=== PATIENT | female | born 1990 | race American Indian/Alaskan Native ===

== ENCOUNTER 2020-02-27 15:53 | Outpatient (CLI) | payer OTHER ==
[2020-02-27 17:11] LABS: Bilirubin,Urine NEG (Negative); Blood,Urine NEG (Negative); Color,Urine Straw (Yellow); Protein,Urine <15 mg/dL mg/dL (Negative); Urobilinogen,Urine < 2.0 mg/dL (<2.0)
--- NOTE | 2020-02-27 19:04 | Ultrasound Report ---
US OB limited INDICATION / CLINICAL INFORMATION: BETH. COMPARISON: None available. FINDINGS: Amniotic fluid index is 10.6 cm, within normal limits. IMPRESSION: 1. Amniotic fluid index is within normal limits. Signer Name: Kan Beckham MD Signed: 02/27/2020 6:59 PM Workstation Name: [id number]
--- NOTE | 2020-02-29 07:22 | Ultrasound Report ---
Limited BPP Ultrasound HISTORY: WELLBEING. TECHNIQUE: Grayscale and color imaging performed. COMPARISON: Limited ultrasound from the same date FINDINGS: The fetus received a score of 2 out of 2 for breathing, movement, posture/tone, and BETH. To reyna score was 8 out of 8. Heart rate was 130 bpm. IMPRESSION: Normal biophysical profile. Signer Name: Paresh Mcmahon MD Signed: 02/29/2020 7:18 AM Workstation Name: [email or web address]
[2020-02-29 12:44] VITALS: BP 130/84
== END 2020-02-27 18:01 | disposition home or self-care (01) ==
LOC: TRG 15:53 → APU 16:01 → TRG 18:01
PROVIDERS: ATTEND Obstetrics & Gynecology
DX: O36.8130 Decreased fetal movements, third trimester, not applicable or unspecified (principal); Z3A.38 38 weeks gestation of pregnancy
CPT/HCPCS: 59025; 76815; 76819; 81001

== ENCOUNTER 2020-03-03 01:28 | Outpatient (CLI) | payer MEDICAID, OTHER ==
[2020-03-03 03:25] LABS: Bacteria,Urine 1+ /HPF (Negative); Bilirubin,Urine NEG (Negative); Blood,Urine NEG (Negative); Color,Urine Straw (Yellow); Protein,Urine <15 mg/dL mg/dL (Negative); Urobilinogen,Urine < 2.0 mg/dL (<2.0)
== END 2020-03-03 04:15 | disposition home or self-care (01) ==
LOC: EDBD → TRG 01:28 → APU 01:29 → TRG 04:15
PROVIDERS: ATTEND Obstetrics & Gynecology
DX: O47.1 False labor at or after 37 completed weeks of gestation (principal); Z3A.39 39 weeks gestation of pregnancy
CPT/HCPCS: 59025; 81001

== ENCOUNTER 2020-03-05 20:29 | Inpatient (IN) | payer MEDICAID, OTHER ==
[2020-03-05] MEDS: LACTATED RINGERS 1,000 ML IV SCH (22:33)
[2020-03-05] MEDS: BUTORPHANOL 2 MG/1 ML INJ IV PRN (22:33)
[2020-03-05] MEDS ORDERED: LIDOCAINE (2%) 20 MG/1 ML VIAL 20 ML MDV INFILTRATI ONE (23:17)
[2020-03-05] MEDS ORDERED: TERBUTALINE 1 MG/1 ML INJ SUB-Q PRN (23:17)
[2020-03-05] MEDS ORDERED: TERBUTALINE 1 MG/1 ML INJ IVP PRN (23:17)
[2020-03-05] MEDS ORDERED: ePHEDrine SULFATE 50 MG/1 ML INJ IV PRN (23:17)
[2020-03-05] MEDS ORDERED: MINERAL OIL 30 ML ORAL LIQD PO PRN (23:17)
[2020-03-05 23:41] LABS: Basophils % (Auto) 0.4 % (0.0-1.8); Eosinophils % (Auto) 0.2 % (0.0-4.3); Hematocrit 33.4 % (30.3-42.9); Hemoglobin 11.2 gm/dl (10.1-14.3); Lymphocytes # (Auto) 1.8 K/mm3 (1.2-5.4); Lymphocytes % (Auto) 27.3 % (13.4-35.0); Mean Corpuscular HGB Conc 34 % (30-34); Mean Corpuscular Volume 94 fl (79-97); Monocytes # (Auto) 0.8 K/mm3 (0.0-0.8); Monocytes % (Auto) 12.1 % (0.0-7.3); Platelet Count 167 K/mm3 (140-440); Red Blood Count 3.55 M/mm3 (3.65-5.03)
[2020-03-05] MEDS ORDERED: LACTATED RINGERS 1,000 ML IV SCH (23:45)
[2020-03-05] MEDS ORDERED: OXYTOCIN 20 UNIT/1000ML DRIP 20 UNITS/1,000 ML BAG IV SCH (23:45)
[2020-03-06] MEDS: BUTORPHANOL 2 MG/1 ML INJ IV PRN (03:36)
[2020-03-06] MEDS: LACTATED RINGERS 1,000 ML IV SCH ×5 (04:41→13:46)
[2020-03-06] MEDS ORDERED: OXYTOCIN 10 UNIT/1 ML INJ ONE (06:25)
[2020-03-06] MEDS: OXYTOCIN DRIP 30 UNITS/500 ML BAG IV SCH ×2 (08:28→16:18)
--- NOTE | 2020-03-06 08:51 | History and Physical Report ---
History of Present Illness Date of examination: 03/06/20 Date of admission: 03/05/20 21:44 Chief complaint: scheduled induction of labor History of present illness: Pt is a 21 year old primigravida SAMMY 03/10/20 at 39w3d who presents for scheduled induction of labor secondary to IUGR by abdominal circumference 6%ile. She denies vaginal bleeding or leakage of fluid and reports irregular contractions. She has had care at [facility] since 29 wks complicated by h/o seizures on Keppra 500 mg BID. She is GBS negative. Past History Past Medical History: seizure (Keppra 500 mg BID ) Past Surgical History: [employer]/uterine surgery (Bartholin cyst drainage ), other (ear surgery ) Family/Genetic History: hypertension Social history: no significant social history - Obstetrical History Expected Date of Delivery: 03/10/20 Actual Gestation: 39 Week(s) 3 Day(s) : 1 Medications and Allergies Allergies Allergy/AdvReac Type Severity Reaction Status Date / Time No Known Allergies Allergy Verified 03/05/20 20:43 Home Medications Medication Instructions Recorded Confirmed Last Taken Type levETIRAcetam [Keppra TAB] 500 mg PO BID 03/05/20 03/05/20 03/05/20 History 500 mg Active Meds: Active Medications Butorphanol Tartrate (Stadol) 2 mg IV Q2H PRN PRN Reason: Labor Pain Last Admin: 03/06/20 03:36 Dose: 2 mg Documented by: Ephedrine Sulfate (Ephedrine Sulfate) 10 mg IV Q2M PRN PRN Reason: Hypotension Lactated Ringer's (Lactated Ringers) 1,000 mls @ 125 mls/hr IV DIRECT DIANA Last Admin: 03/06/20 08:27 Dose: 999 mls/hr Documented by: Oxytocin/Sodium Chloride (Pitocin/Ns 20 Unit/1000ml Drip) 20 units in 1,000 mls @ 125 mls/hr IV DIRECT DIANA Oxytocin/Sodium Chloride (Pitocin/Ns 30 Unit/500ml) 30 units in 500 mls @ 0 mls/hr IV TITR DIANA; Protocol Last Admin: 03/06/20 08:28 Dose: 2 ml/hr, 2 mls/hr Documented by: Levetiracetam (Keppra) 500 mg PO BID DIANA Mineral Oil (Mineral Oil) 30 ml PO QHS PRN PRN Reason: Constipation Terbutaline Sulfate (Brethine) 0.25 mg SUB-Q ONCE PRN PRN Reason: Hyperstimulation/Hypertonicity Terbutaline Sulfate (Brethine) 0.25 mg IVP ONCE PRN PRN Reason: Hyperstimulation/Hypertonicity Review of Systems All systems: negative - Vital Signs Vital signs: Vital Signs Temp Resp BP 98.6 F 18 135/89 03/05/20 20:45 03/05/20 20:45 03/05/20 20:45 Temp Pulse Resp BP Pulse Ox 98.0 F 85 20 135/81 98 03/06/20 07:56 03/06/20 08:48 03/06/20 07:56 03/06/20 07:56 03/06/20 08:48 - Physical Exam Breasts: Positive: deferred Abdomen: Positive: soft (gravid ) Uterus: Positive: enlarged (gravid ) Extremities: Positive: normal - Obstetrical FHR: auscultation normal Uterine Contraction Monitor Mode: External Cervical Dilatation: 3.5 Cervical Effacement Percentage: 100 station: -1 Uterine Contraction Pattern: Regular Uterine Tone Measurement Phase: Resting Uterine Contraction Intensity: Moderate Results Result Diagrams: 03/05/20 22:37 Abnormal lab results 03/05/20 Range/Units 22:37 RBC 3.55 L (3.65-5.03) M/mm3 [place] % (Auto) 12.1 H (0.0-7.3) % All other labs normal. Assessment and Plan A: IUP at 39w3d IUGR by abdominal circumference 6%ile Seizure Disorder GBS Negative P: Admit to Labor and Delivery Routine intrapartum care Closely monitor maternal and status
[2020-03-06] MEDS ORDERED: DEXMEDETOMIDINE 200 MCG/2 ML VIAL IV ONE (09:28)
[2020-03-06] MEDS ORDERED: ePHEDrine SULFATE 50 MG/1 ML INJ IV PRN (10:03)
[2020-03-06] MEDS ORDERED: NALOXONE 2 MG/2 ML INJ IV PRN (10:03)
--- NOTE | 2020-03-06 10:05 | Anesthesia Consultation ---
Anesthesia Consult and Med Hx Date of service: 03/06/20 - Airway Anesthetic Teeth Evaluation: Good ROM Head & Neck: Adequate Mental/Hyoid Distance: Adequate Mallampati Class: Class II Intubation Access Assessment: Probably Good - Pulmonary Exam CTA: Yes - Cardiac Exam Cardiac Exam: RRR - Pre-Operative Health Status ASA Pre-Surgery Classification: ASA2 Proposed Anesthetic Plan: Epidural - Pulmonary Hx Smoking: No Hx Asthma: No Hx Respiratory Symptoms: No SOB: No COPD: No Home Oxygen Therapy: No Hx Pneumonia: No Hx Sleep Apnea: No - Cardiovascular System Hx Hypertension: No Hx Coronary Artery Disease: No Hx Heart Attack/AMI: No Hx Angina: No Hx Percutaneous Transluminal Coronary Angioplasty (PTCA): No Hx Cardia Arrhythmia: No Hx Pacemaker: No Hx Internal Defibrillator: No Hx Valvular Heart Disease: No Hx Heart Murmur: No Hx Peripheral Vascular Disease: No - Central Nervous System Hx Neuromuscular Disorder: No Hx Seizures: Yes CVA: No Hx Back Pain: No Hx Psychiatric Problems: No - Gastrointestinal Hx Ulcer: No Hx Gastroesophageal Reflux Disease: No - Endocrine Hx Renal Disease: No Hx End Stage Renal Disease: No Hx Cirrhosis: No Hx Liver Disease: No Hx Insulin Dependent Diabetes: No Hx Non-Insulin Dependent Diabetes: No Hx Thyroid Disease: No Hx Hypothyroidism: No Hx Hyperthyroidism: No - Hematic Hx Anemia: No Hx Sickle Cell Disease: No - Other Systems Hx Alcohol Use: No Hx Substance Use: No Hx Cancer: No Hx Obesity: No
[2020-03-06] MEDS: levETIRAcetam 500 MG TAB PO SCH ×2 (10:20→21:54)
[2020-03-06] MEDS ORDERED: fentaNYL-BUPIV 2 MCG/ML-0.125% 200 MCG/100 ML BAG EPIDURAL SCH (11:00)
--- NOTE | 2020-03-06 11:02 | Progress Note ---
Labor Epidural - Labor Epidural Start Time: 09:30 Stop Time: :44 Performed by:: ALANNAH BULLARD Procedure: Patient is requesting combined spinal epidural for labor and pain. H&P, labs were reviewed. All questions and concerns were answered. Informed consent was obtained. Timeout performed. Patient in sitting position on side of bed. Sterile prep and drape was performed. [3] mL 1% lidocaine skin wheal at L [4]-L [5]. 18-gauge Touhy epidural needle advanced to [id number] using air technique, [6 cm]. 27-gauge spinal needle advanced [clear positive free- flowing] CSF. spinal dose of [Precedex 10 mcg]. Epidural catheter advanced to [10] cm. [Negative] Aspiration, [negative] test dose. Sterile dressing applied. Patient tolerated procedure well.
--- NOTE | 2020-03-06 13:35 | Event Note ---
Date: 03/06/20 Pt comfortable with epidural. SVE: /-1/ AROM- clear. IUPC placed. Closely monitor maternal and status.
[2020-03-06] MEDS ORDERED: SODIUM CHLORIDE 0.9% 1000 ML 1,000 ML ONE (13:39)
[2020-03-06] MEDS ORDERED: SODIUM CHLORIDE 0.9% 1000 ML 1,000 ML VG SCH (14:15)
--- NOTE | 2020-03-06 19:42 | Procedure Note ---
OB Delivery Note - Delivery Date of Delivery: 03/06/20 Surgeon: RICKY EDWARDS Estimated blood loss: 500cc - Vaginal Delivery presentation: compound Delivery position: OA Intrapartum events: PROM->1hr before delivery, mult. late decelerations, mult.variable deceleratio, uterine atony Delivery induction: oxytocin Delivery augmentation: rupture of membranes, pitocin Delivery monitor: external FHT, internal uterine Route of delivery: Delivery placenta: spontaneous Delivery cord: nuchal cord (x1, tight ) Episiotomy: none Delivery laceration: vaginal side wall (left,), other (Bilateral periurethral- hemostatic ) Delivery repair: vicryl Anesthesia: epidural Delivery comments: Pt progressed to complete/complete/+3 and pushed to deliver a viable male over intact perineum via spontaneous vaginal delivery under epidural anesthesia. Head delivered in compound presentation, DEJUAN. Tight nuchal x 1 doubly clamped and cut. Shoulders and body delivered with ease. immediately handed to NICU staff in attendance. Cord blood collected. Placenta delivered spontaneously (3 vessel cord, intact). Uterine atony noted. Methergine 0.2 mg IM administered. Uterine tone improved. Vagina and perineum explored. Bilateral periurethral lacerations noted to be hemostatic. Left vaginal lacerations repaired with 3-0 Vicryl in a running locked fashion. EBL 500 mL. - A at 1 minute: 4 at 5 minutes: 9 Infant Gender: Male (3150g (6lb 15 oz) @ 1912 pm)
[2020-03-06] MEDS ORDERED: METHYLERGONOVINE MALEATE 0.2 MG/ML VIAL IM ONE (19:44)
[2020-03-06] MEDS ORDERED: PROMETHAZINE 25 MG TAB PO PRN (20:56)
[2020-03-06] MEDS ORDERED: LANOLIN/ZINC/DIMETHICONE (LANSINOH) 7 GM TP PRN ×2 (20:56)
[2020-03-06] MEDS ORDERED: ONDANSETRON 4 MG/2 ML INJ IV PRN (20:56)
[2020-03-06] MEDS ORDERED: MAGNESIUM HYDROXIDE (MOM) ORAL LIQD UDC PO PRN (20:56)
[2020-03-06] MEDS ORDERED: hydrALAZINE 20 MG/1 ML INJ IV PRN (20:56)
[2020-03-06] MEDS ORDERED: WITCH HAZEL/ GLYCERIN PAD TP PRN (20:56)
[2020-03-06] MEDS ORDERED: PROMETHAZINE 25 MG RECT SUPP PR PRN (20:56)
[2020-03-06] MEDS ORDERED: BENZOCAINE/MENTHOL 20/0.5% TOP SPRAY 56 GM TP PRN (20:56)
[2020-03-06] MEDS ORDERED: CALCIUM GLUCONATE 1000 MG/10 ML INJ IV ONE (20:56)
[2020-03-06] MEDS ORDERED: diphenhydrAMINE 25 MG CAP PO PRN (20:56)
--- NOTE | 2020-03-06 20:56 | Event Note ---
Date: 03/06/20 On-call MD contacted by nurse secondary to new onset severe range blood pressures 170-180s/90s and headache. Collect PIH panel and begin magnesium sulfate for seizure prophylaxis.
[2020-03-06] MEDS ORDERED: LACTATED RINGERS 1,000 ML IV SCH (21:00)
[2020-03-06] MEDS ORDERED: OXYTOCIN 20 UNIT/1000ML DRIP 20 UNITS/1,000 ML BAG IV SCH (21:00)
[2020-03-06] MEDS ORDERED: MAGNESIUM SULFATE 4 GM/100 ML BAG IV ONE (21:06)
[2020-03-06] MEDS: ACETAMINOPHEN 325 MG TAB PO PRN (21:52)
[2020-03-06] MEDS: FERROUS SULFATE 325 MG TAB PO SCH (21:53)
[2020-03-06] MEDS: IBUPROFEN 600 MG TAB PO SCH (21:54)
[2020-03-06] MEDS ORDERED: MAGNESIUM SULFATE 40GM/1000ML 40 GM/1,000 ML BAG IV SCH (22:00)
[2020-03-06 22:19] LABS: Hematocrit 34.2 % (30.3-42.9); Hemoglobin 10.8 gm/dl (10.1-14.3); Mean Corpuscular HGB Conc 32 % (30-34); Mean Corpuscular Volume 99 fl (79-97); Platelet Count 180 K/mm3 (140-440); Red Blood Count 3.48 M/mm3 (3.65-5.03); Red Cell Distribution Width 15.3 % (13.2-15.2)
[2020-03-06 22:28] LABS: Alanine Aminotransferase 11 units/L (7-56); Uric Acid 6.8 mg/dL (3.5-7.6)
--- NOTE | 2020-03-07 00:20 | Post Anesthesia Evaluation ---
- Post Anesthesia Evaluation Patient Participated: Yes Airway Patent: Yes Stable Respiratory Function: Yes Nausea/Vomiting: No Temp > 96.8F: Yes Pain Manageable: Yes Adequeate Hydration: Yes Anesthesia Complications: No Block Receding Appropriately: Yes Patient on Ventilator: No
[2020-03-07] MEDS ORDERED: miSOPROStol 200 MCG TAB PR ONE (00:26)
[2020-03-07 02:21] LABS: Bilirubin,Urine NEG (Negative); Blood,Urine LG (Negative); Color,Urine Straw (Yellow); Mucus,Urine FEW /HPF; Protein,Urine <15 mg/dL mg/dL (Negative); Urobilinogen,Urine < 2.0 mg/dL (<2.0)
[2020-03-07] MEDS: IBUPROFEN 600 MG TAB PO SCH ×3 (03:55→17:39)
[2020-03-07] MEDS ORDERED: DIPHtheria,PERTUSSIS(ACELL),TETANUS VACCINE/PF 0.5 ML VIAL IM ONE (06:00)
[2020-03-07] MEDS: HYDROcodone/ACETAMINOPHEN 5-325 MG TAB PO PRN (07:08)
--- NOTE | 2020-03-07 08:20 | Progress Note ---
Assessment and Plan - Patient Problems (1) Severe preeclampsia Current Visit: Yes Status: Acute Plan to address problem: Continue to monitor symptoms Discontinue magnesium after completion of 24 hours Subjective - Subjective Date of service: 03/07/20 Interval history: The patient is currently receiving magnesium sulfate therapy for preeclampsia. She will complete her 24-hour course of medication this afternoon. She currently complains of some lower back discomfort and abdominal cramping. She has had no further episodes of emesis. Blood pressures are currently normotensive. Patient reports: flatus : doing well Objective - Vital Signs Latest vital signs: Vital Signs Temp Pulse Resp BP Pulse Ox 03/07/20 08:13 102 H 98 03/07/20 08:09 112 H 108/63 03/07/20 08:08 105 H 98 03/07/20 08:03 106 H 98 03/07/20 07:58 104 H 98 03/07/20 07:53 103 H 98 03/07/20 07:50 96 H 92 03/07/20 07:48 101 H 98 03/07/20 07:44 98 H 86 03/07/20 07:43 108 H 97 03/07/20 07:39 100 H 86 03/07/20 07:38 105 H 98 03/07/20 07:33 106 H 98 03/07/20 07:28 105 H 97 03/07/20 07:23 103 H 97 03/07/20 07:18 102 H 97 03/07/20 07:13 110 H 97 03/07/20 07:09 109 H 104/55 03/07/20 07:08 111 H 98 03/07/20 07:03 109 H 98 03/07/20 06:58 109 H 98 03/07/20 06:53 107 H 98 03/07/20 06:48 109 H 97 03/07/20 06:43 120 H 98 03/07/20 06:38 127 H 99 03/07/20 06:33 110 H 98 03/07/20 06:28 109 H 98 03/07/20 06:23 114 H 98 03/07/20 06:18 108 H 98 03/07/20 06:13 108 H 98 03/07/20 06:09 109 H 112/63 03/07/20 06:08 104 H 98 03/07/20 06:03 106 H 99 05/19/20 05:58 113 H 100 05/19/20 05:53 107 H 100 05/19/20 05:48 113 H 100 05/19/20 05:43 117 H 100 05/19/20 05:38 127 H 99 05/19/20 05:33 124 H 98 05/19/20 05:28 111 H 99 05/19/20 05:23 120 H 98 05/19/20 05:18 117 H 97 05/19/20 05:13 110 H 98 05/19/20 05:09 106 H 110/54 05/19/20 05:08 107 H 97 05/19/20 05:03 103 H 97 05/19/20 04:58 113 H 99 05/19/20 04:53 112 H 96 05/19/20 04:48 105 H 97 05/19/20 04:43 106 H 98 05/19/20 04:38 120 H 98 05/19/20 04:33 139 H 99 05/19/20 04:28 135 H 99 05/19/20 04:23 134 H 98 05/19/20 04:18 136 H 98 05/19/20 04:13 138 H 99 05/19/20 04:08 132 H 99 05/19/20 04:06 98.7 F 18 05/19/20 04:03 140 H 98 05/19/20 03:58 125 H 99 05/19/20 03:53 131 H 100 05/19/20 03:48 117 H 100 05/19/20 03:43 103 H 98 05/19/20 03:38 132 H 98 05/19/20 03:33 120 H 97 05/19/20 03:28 130 H 99 05/19/20 03:23 109 H 100 05/19/20 03:18 156 H 99 05/19/20 03:13 109 H 96 05/19/20 03:09 115 H 123/76 05/19/20 03:08 133 H 100 05/19/20 03:04 117 H 86 05/19/20 03:03 120 H 97 05/19/20 02:58 120 H 95 05/19/20 02:53 116 H 96 05/19/20 02:48 104 H 96 05/19/20 02:46 107 H 86 05/19/20 02:43 107 H 96 05/19/20 02:40 109 H 92 05/19/20 02:38 106 H 97 05/19/20 02:33 102 H 95 05/19/20 02:28 102 H 95 05/19/20 02:23 103 H 97 05/19/20 02:22 105 H 94 05/19/20 02:18 102 H 96 05/19/20 02:17 99 H 93 05/19/20 02:13 99 H 96 05/19/20 02:09 96 H 119/72 05/19/20 02:08 100 H 96 05/19/20 02:04 96 H 93 05/19/20 02:03 96 H 96 05/19/20 01:58 89 98 05/19/20 01:53 89 98 05/19/20 01:48 87 99 05/19/20 01:43 140 H 99 05/19/20 01:42 100 H 92 05/19/20 01:38 92 H 100 05/19/20 01:33 84 99 05/19/20 01:30 77 91 05/19/20 01:28 82 98 05/19/20 01:23 78 97 05/19/20 01:18 80 98 05/19/20 01:13 78 99 05/19/20 01:09 78 111/68 86 05/19/20 01:08 82 98 05/19/20 01:03 79 97 05/19/20 01:02 78 90 05/19/20 00:58 79 97 05/19/20 00:54 77 92 05/19/20 00:53 82 97 05/19/20 00:48 80 97 05/19/20 00:43 83 97 05/19/20 00:38 80 97 05/19/20 00:33 83 97 05/19/20 00:30 89 94 05/19/20 00:28 87 97 05/19/20 00:23 86 96 05/19/20 00:20 92 H 93 05/19/20 00:18 95 H 98 05/19/20 00:13 105 H 98 05/19/20 00:09 87 112/59 05/19/20 00:08 91 H 96 05/19/20 00:05 98.8 F 18 05/19/20 00:03 98 H 97 05/18/20 23:58 108 H 97 05/18/20 23:53 91 H 98 05/18/20 23:48 133 H 99 05/18/20 23:43 105 H 97 05/18/20 23:38 111 H 98 05/18/20 23:33 98 H 98 05/18/20 23:28 105 H 98 05/18/20 23:23 101 H 99 05/18/20 23:18 116 H 98 05/18/20 23:13 112 H 98 05/18/20 23:09 96 H 111/58 05/18/20 23:08 99 H 96 05/18/20 23:03 102 H 98 05/18/20 22:58 83 97 05/18/20 22:53 86 99 05/18/20 22:48 99 H 99 05/18/20 22:43 107 H 99 05/18/20 22:38 110 H 100 05/18/20 22:33 106 H 100 05/18/20 22:28 120 H 98 05/18/20 22:23 99 H 100 05/18/20 22:18 108 H 98 05/18/20 22:13 92 H 99 05/18/20 22:08 95 H 97 05/18/20 22:03 104 H 94 05/18/20 22:02 104 H 92 05/18/20 21:58 114 H 100 05/18/20 21:55 103 H 148/63 05/18/20 21:54 102 H 91 05/18/20 21:53 89 100 05/18/20 21:48 107 H 100 05/18/20 21:45 101.8 F H 05/18/20 21:43 107 H 97 05/18/20 21:38 90 97 05/18/20 21:34 90 125/69 05/18/20 21:33 92 H 99 05/18/20 21:28 80 99 05/18/20 21:23 77 98 05/18/20 21:18 113 H 99 05/18/20 21:14 63 139/87 05/18/20 21:13 67 99 05/18/20 21:08 65 100 05/18/20 21:03 68 100 05/18/20 20:58 68 100 05/18/20 20:54 61 167/61 05/18/20 20:53 64 98 05/18/20 20:48 63 99 05/18/20 20:45 63 186/79 05/18/20 20:43 72 95 05/18/20 20:38 62 99 05/18/20 20:35 64 173/76 05/18/20 20:33 66 99 05/18/20 20:28 66 100 05/18/20 20:23 63 99 05/18/20 20:18 61 98 05/18/20 20:15 64 159/82 05/18/20 20:13 63 98 05/18/20 20:08 63 98 05/18/20 20:03 68 100 05/18/20 20:02 83 94 05/18/20 19:58 84 96 05/18/20 19:54 68 146/61 05/18/20 19:53 74 100 05/18/20 19:48 100 H 99 05/18/20 19:43 91 H 98 05/18/20 19:38 87 99 05/18/20 19:36 76 134/68 05/18/20 19:33 97 H 100 05/18/20 19:28 81 100 05/18/20 19:23 87 100 05/18/20 19:21 85 126/73 05/18/20 19:20 100.2 F H 05/18/20 19:18 96 H 100 05/18/20 19:16 100.9 F H 05/18/20 19:13 83 100 05/18/20 19:08 107 H 100 05/18/20 19:06 78 138/79 05/18/20 19:03 110 H 100 05/18/20 19:00 100.9 F H 20 05/18/20 18:58 101 H 100 05/18/20 18:53 76 100 05/18/20 18:50 99.6 F 05/18/20 18:48 67 100 05/18/20 18:43 68 100 05/18/20 18:38 70 100 05/18/20 18:36 66 147/72 05/18/20 18:33 71 100 05/18/20 18:28 74 100 05/18/20 18:23 73 100 05/18/20 18:22 71 144/75 05/18/20 18:18 76 100 05/18/20 18:13 90 100 05/18/20 18:10 72 144/67 05/18/20 18:08 77 100 05/18/20 18:07 71 158/84 05/18/20 18:03 74 100 05/18/20 17:58 71 100 05/18/20 17:53 72 123/58 100 05/18/20 17:48 63 100 05/18/20 17:43 63 100 05/18/20 17:38 64 100 05/18/20 17:37 66 125/69 05/18/20 17:33 67 100 05/18/20 17:28 65 100 05/18/20 17:23 65 100 05/18/20 17:22 61 141/76 05/18/20 17:18 63 100 05/18/20 17:13 66 100 05/18/20 17:08 73 100 05/18/20 17:07 62 138/78 05/18/20 17:03 59 L 100 05/18/20 16:58 65 100 05/18/20 16:53 75 133/73 100 05/18/20 16:48 81 100 05/18/20 16:43 86 100 05/18/20 16:38 68 100 05/18/20 16:37 62 134/75 05/18/20 16:33 76 100 05/18/20 16:28 63 100 05/18/20 16:23 64 118/74 100 05/18/20 16:18 60 100 05/18/20 16:13 59 L 100 05/18/20 16:08 56 L 100 05/18/20 16:07 58 L 136/75 05/18/20 16:03 59 L 100 05/18/20 15:58 57 L 100 05/18/20 15:53 68 99 05/18/20 15:52 70 110/74 05/18/20 15:48 70 99 05/18/20 15:43 80 100 05/18/20 15:38 67 100 05/18/20 15:37 63 116/58 05/18/20 15:33 90 100 05/18/20 15:28 64 100 05/18/20 15:23 59 L 100 05/18/20 15:22 57 L 135/76 05/18/20 15:18 60 100 05/18/20 15:13 59 L 100 05/18/20 15:08 70 138/87 100 05/18/20 15:03 73 100 05/18/20 14:58 63 100 05/18/20 14:53 64 100 05/18/20 14:52 64 139/88 05/18/20 14:48 68 100 05/18/20 14:43 62 100 05/18/20 14:38 61 154/90 100 05/18/20 14:33 56 L 100 05/18/20 14:28 60 100 05/18/20 14:23 58 L 100 05/18/20 14:21 58 L 142/83 05/18/20 14:18 58 L 100 05/18/20 14:13 58 L 100 05/18/20 14:08 63 135/80 100 05/18/20 14:03 67 100 05/18/20 13:58 65 100 05/18/20 13:53 62 100 05/18/20 13:52 64 146/86 05/18/20 13:48 59 L 100 05/18/20 13:43 66 100 05/18/20 13:38 67 100 05/18/20 13:37 60 125/73 05/18/20 13:33 69 100 05/18/20 13:28 65 100 05/18/20 13:23 72 128/78 99 05/18/20 13:18 65 99 05/18/20 13:13 80 99 05/18/20 13:08 70 128/86 100 05/18/20 13:03 85 100 05/18/20 12:58 92 H 98 05/18/20 12:53 71 99 05/18/20 12:52 63 133/79 05/18/20 12:48 74 99 05/18/20 12:43 65 99 05/18/20 12:38 68 100 05/18/20 12:37 71 133/80 05/18/20 12:36 16 05/18/20 12:33 69 100 05/18/20 12:28 64 100 05/18/20 12:23 66 114/82 100 05/18/20 12:18 65 100 05/18/20 12:13 68 100 05/18/20 12:08 60 100 05/18/20 12:07 67 119/70 05/18/20 12:03 59 L 100 05/18/20 11:58 63 100 05/18/20 11:53 73 100 05/18/20 11:51 68 130/79 05/18/20 11:48 60 100 05/18/20 11:43 67 100 05/18/20 11:38 63 100 05/18/20 11:36 61 124/76 05/18/20 11:33 60 100 05/18/20 11:28 71 100 05/18/20 11:23 69 100 05/18/20 11:22 68 134/76 05/18/20 11:18 62 100 05/18/20 11:13 60 100 05/18/20 11:08 84 100 05/18/20 11:07 73 122/67 05/18/20 11:03 69 100 05/18/20 10:58 72 100 05/18/20 10:53 78 100 05/18/20 10:52 70 121/65 05/18/20 10:48 69 100 05/18/20 10:43 67 100 05/18/20 10:38 61 100 05/18/20 10:36 64 105/58 05/18/20 10:33 79 107/60 100 05/18/20 10:30 75 97/56 05/18/20 10:28 81 100 05/18/20 10:27 71 107/59 05/18/20 10:24 96 H 109/56 05/18/20 10:23 94 H 99 05/18/20 10:21 71 110/56 05/18/20 10:18 70 91/55 100 05/18/20 10:15 69 90/54 05/18/20 10:13 67 100 05/18/20 10:12 65 103/54 05/18/20 10:09 78 91/52 05/18/20 10:08 81 100 05/18/20 10:06 80 94/52 05/18/20 10:03 85 107/57 98 05/18/20 10:00 75 113/59 05/18/20 09:58 83 98 05/18/20 09:57 71 115/58 05/18/20 09:54 75 121/57 05/18/20 09:53 86 99 05/18/20 09:51 80 133/64 05/18/20 09:48 90 146/91 98 05/18/20 09:43 90 97 05/18/20 09:41 58 L 87 03/06/20 09:36 114 H 85 03/06/20 09:33 80 99 03/06/20 09:28 88 100 03/06/20 09:23 75 100 03/06/20 09:18 69 98 03/06/20 09:13 80 95 03/06/20 09:08 86 99 03/06/20 09:03 79 99 03/06/20 08:58 101 H 97 03/06/20 08:53 74 98 03/06/20 08:52 65 94 03/06/20 08:48 85 98 03/06/20 08:43 85 98 03/06/20 08:38 76 99 03/06/20 08:33 83 97 03/06/20 08:28 79 97 03/06/20 08:26 76 93 03/06/20 08:23 66 99 Intake and Output 03/06/20 03/07/20 03/07/20 22:59 06:59 14:59 Intake Total 29.233 Output Total 1250 1132 166 Balance -1220.767 -1132 -166 Intake: IV 29.233 PITOCin/NS 30 UNIT/500ML 29.233 30 units In 500 ml @ As Directed IV TITR DIANA Rx#: [id number] Output: Urine 1250 1132 166 Indwelling Catheter 1250 1132 166 Other: Total, Output Amount 450 166 166 Estimated Blood Loss 500 - Labs Labs: Abnormal lab results 03/06/20 03/06/20 03/07/20 Range/Units 21:59 21:59 01:57 WBC 11.9 H (4.5-11.0) K/mm3 RBC 3.48 L (3.65-5.03) M/mm3 MCV 99 H (79-97) fl RDW 15.3 H (13.2-15.2) % Magnesium (1.7-2.3) mg/dL Lactate Dehydrogenase 334 H (91-180) units/L Urine WBC (Auto) 11.0 H (0.0-6.0) /HPF 03/07/20 Range/Units 04:02 WBC (4.5-11.0) K/mm3 RBC (3.65-5.03) M/mm3 MCV (79-97) fl RDW (13.2-15.2) % Magnesium 5.50 H (1.7-2.3) mg/dL Lactate Dehydrogenase (91-180) units/L Urine WBC (Auto) (0.0-6.0) /HPF
[2020-03-07] MEDS: PRENATAL VIT27-FE FUMARATE-FOLIC ACID VIT TAB PO SCH (10:18)
[2020-03-07] MEDS: FERROUS SULFATE 325 MG TAB PO SCH (10:18)
[2020-03-07] MEDS: levETIRAcetam 500 MG TAB PO SCH ×2 (10:19→22:41)
[2020-03-07 10:24] LABS: Hematocrit 20.7 % (30.3-42.9)
[2020-03-07] MEDS ORDERED: ePHEDrine SULFATE 50 MG/1 ML INJ IV PRN (13:52)
[2020-03-07] MEDS ORDERED: NALOXONE 2 MG/2 ML INJ IV PRN (13:52)
[2020-03-07] MEDS ORDERED: fentaNYL-BUPIV 2 MCG/ML-0.125% 200 MCG/100 ML BAG EPIDURAL SCH (14:00)
[2020-03-07] MEDS: ACETAMINOPHEN 325 MG TAB PO PRN (20:28)
[2020-03-07] MEDS ORDERED: MEASLES, MUMPS & RUBELLA 12,500 UNIT/0.5 ML VACCINE SUB-Q ONE (20:56)
[2020-03-08] MEDS: HYDROcodone/ACETAMINOPHEN 5-325 MG TAB PO PRN ×3 (00:04→23:36)
[2020-03-08] MEDS: IBUPROFEN 600 MG TAB PO SCH ×4 (05:53→17:19)
--- NOTE | 2020-03-08 08:31 | Progress Note ---
Assessment and Plan A: PPD2 s/p , pree s/p MGSO4 Vital signs stable Acute on chronic anemia due to and blood loss P: Continue current care Fe supplementation Anticipate d/c to home on PPD3 Subjective - Subjective Date of service: 03/08/20 Principal diagnosis: s/p and MGSO4 Interval history: PPD2 s/p , pree s/p MGSO4 Patient reports: appetite normal, voiding normally, pain well controlled, ambul ating normally [place]: doing well, nursing well Objective - Vital Signs Latest vital signs: Vital Signs Temp Pulse Resp BP BP Pulse Ox 03/08/20 04:28 98.2 F 92 H 20 117/62 100 03/07/20 23:30 98.8 F 62 100 H 129/71 03/07/20 22:20 98.5 F 98 H 100 03/07/20 22:15 89 100 03/07/20 22:10 91 H 100 03/07/20 22:05 97 H 100 03/07/20 22:00 90 100 03/07/20 21:55 87 100 03/07/20 21:50 95 H 100 03/07/20 21:45 104 H 100 03/07/20 21:40 107 H 100 03/07/20 21:37 121 H 91 03/07/20 21:35 148 H 97 03/07/20 21:29 116 H 100 03/07/20 21:24 109 H 100 03/07/20 21:20 18 03/07/20 21:19 95 H 92 03/07/20 21:14 105 H 100 03/07/20 21:09 112 H 113/57 100 03/07/20 21:04 101 H 100 03/07/20 20:59 107 H 100 03/07/20 20:54 103 H 100 03/07/20 20:49 98 H 100 03/07/20 20:44 109 H 100 03/07/20 20:39 105 H 100 03/07/20 20:34 108 H 100 03/07/20 20:29 122 H 100 03/07/20 20:28 18 03/07/20 20:24 120 H 100 03/07/20 20:19 102 H 100 03/07/20 20:14 99 H 100 03/07/20 20:09 97 H 114/57 100 05/19/20 20:04 98 H 100 05/19/20 19:59 118 H 99 05/19/20 19:54 102 H 100 05/19/20 19:49 99 H 100 05/19/20 19:46 28 L 94 05/19/20 19:44 95 H 100 05/19/20 19:39 96 H 100 05/19/20 19:34 109 H 100 05/19/20 19:29 95 H 100 05/19/20 19:24 99 H 100 05/19/20 19:19 93 H 100 05/19/20 19:14 90 100 05/19/20 19:09 87 116/67 100 05/19/20 19:04 91 H 100 05/19/20 18:59 91 H 99 05/19/20 18:54 112 H 100 05/19/20 18:49 103 H 100 05/19/20 18:47 98 H 120/69 05/19/20 18:44 103 H 100 05/19/20 18:39 83 100 0519/20 18:34 85 100 05/19/20 18:29 86 100 05/19/20 18:24 79 100 05/19/20 18:19 81 100 05/19/20 18:14 82 100 05/19/20 18:09 92 H 100 05/19/20 18:04 100 H 100 05/19/20 18:00 98.1 F 0519/20 17:59 97 H 100 05/19/20 17:54 92 H 100 05/19/20 17:49 89 100 05/19/20 17:44 83 100 05/19/20 17:39 97 H 100 05/19/20 17:34 99 H 100 05/19/20 17:29 86 99 05/19/20 17:24 87 99 05/19/20 17:19 88 99 05/19/20 17:14 87 99 05/19/20 17:09 88 99 05/19/20 17:04 87 98 05/19/20 16:59 86 98 05/19/20 16:54 88 98 05/19/20 16:49 87 99 05/19/20 16:44 86 99 05/19/20 16:39 86 98 05/19/20 16:34 87 99 05/19/20 16:29 89 99 05/19/20 16:24 88 98 05/19/20 16:20 87 91 05/19/20 16:19 91 H 99 05/19/20 16:14 94 H 99 05/19/20 16:09 89 99 05/19/20 16:04 90 99 05/19/20 16:00 97.9 F 05/19/20 15:59 89 99 05/19/20 15:54 90 99 05/19/20 15:49 93 H 99 05/19/20 15:44 93 H 98 05/19/20 15:39 92 H 99 05/19/20 15:34 91 H 99 05/19/20 15:29 89 99 05/19/20 15:24 89 99 05/19/20 15:19 86 99 05/19/20 15:14 36 L 98 05/19/20 15:09 91 H 100 05/19/20 15:04 91 H 100 05/19/20 14:59 87 100 05/19/20 14:54 100 H 100 05/19/20 14:49 86 100 05/19/20 14:44 107 H 100 05/19/20 14:39 103 H 100 05/19/20 14:34 104 H 100 05/19/20 14:29 108 H 100 05/19/20 14:24 101 H 100 05/19/20 14:19 93 H 100 05/19/20 14:14 94 H 100 05/19/20 14:13 104 H 91 05/19/20 14:09 92 H 110/60 100 05/19/20 14:04 94 H 100 05/19/20 13:59 113 H 100 05/19/20 13:54 94 H 99 05/19/20 13:49 120 H 96 05/19/20 13:44 105 H 99 05/19/20 13:43 113 H 94 05/19/20 13:39 103 H 99 05/19/20 13:34 108 H 99 05/19/20 13:29 109 H 99 05/19/20 13:24 115 H 98 05/19/20 13:19 116 H 99 05/19/20 13:14 116 H 99 05/19/20 13:09 111 H 125/61 98 05/19/20 13:04 108 H 98 05/19/20 12:59 111 H 98 05/19/20 12:54 118 H 99 05/19/20 12:49 114 H 99 05/19/20 12:44 117 H 99 05/19/20 12:39 111 H 100 05/19/20 12:34 106 H 99 05/19/20 12:29 120 H 99 05/19/20 12:24 112 H 100 05/19/20 12:19 106 H 99 05/19/20 12:14 94 H 98 05/19/20 12:09 106 H 114/58 98 05/19/20 12:04 105 H 99 05/19/20 12:00 98.3 F 05/19/20 11:59 109 H 100 05/19/20 11:54 103 H 98 05/19/20 11:49 105 H 98 05/19/20 11:44 115 H 100 05/19/20 11:39 103 H 99 05/19/20 11:34 102 H 100 05/19/20 11:29 96 H 99 05/19/20 11:24 119 H 99 05/19/20 11:19 114 H 99 05/19/20 11:14 120 H 97 05/19/20 11:09 117 H 126/61 98 05/19/20 11:04 108 H 97 05/19/20 10:59 117 H 99 05/19/20 10:54 130 H 98 05/19/20 10:49 129 H 99 05/19/20 10:44 111 H 98 05/19/20 10:39 107 H 99 05/19/20 10:34 113 H 98 05/19/20 10:29 128 H 100 05/19/20 10:24 99 H 98 05/19/20 10:19 116 H 100 05/19/20 10:14 109 H 99 05/19/20 10:09 104 H 104/56 99 05/19/20 10:04 105 H 100 05/19/20 09:59 110 H 99 05/19/20 09:54 103 H 99 05/19/20 09:49 114 H 97 05/19/20 09:44 105 H 100 05/19/20 09:38 112 H 99 05/19/20 09:33 101 H 98 05/19/20 09:28 111 H 100 05/19/20 09:23 100 H 99 05/19/20 09:18 95 H 100 05/19/20 09:13 102 H 100 03/07/20 09:12 100 H 94 03/07/20 09:09 101 H 121/64 03/07/20 09:08 103 H 100 03/07/20 09:03 105 H 98 03/07/20 08:58 103 H 98 03/07/20 08:53 103 H 98 03/07/20 08:48 101 H 99 03/07/20 08:43 102 H 99 03/07/20 08:38 97 H 99 03/07/20 08:33 97 H 100 Intake and Output 03/07/20 03/08/20 03/08/20 23:59 07:59 15:59 Intake Total 120 Output Total 1245 1500 Balance -1245 -1380 Intake: Oral 120 Output: Urine 1245 1500 Indwelling Catheter 1245 Void 1500 Other: Total, Intake Amount 120 Total, Output Amount 250 900 # Voids Indwelling Catheter 1 Void 3 - Exam Lungs: Present: Normal air movement Abdomen: Present: soft. Absent: distention Uterus: Present: firm, fundal height below umbilicus. Absent: bogginess Extremities: Present: normal - Labs Labs: Abnormal lab results 03/07/20 03/07/20 03/07/20 Range/Units 10:01 10:01 15:07 Hgb 7.0 L D (10.1-14.3) gm/dl Hct 20.7 L D (30.3-42.9) % Magnesium 6.70 H 6.80 H (1.7-2.3) mg/dL
[2020-03-08] MEDS: FERROUS SULFATE 325 MG TAB PO SCH ×2 (10:06→22:11)
[2020-03-08] MEDS: levETIRAcetam 500 MG TAB PO SCH ×2 (10:06→22:08)
[2020-03-08] MEDS: PRENATAL VIT27-FE FUMARATE-FOLIC ACID VIT TAB PO SCH (10:06)
[2020-03-09] MEDS: IBUPROFEN 600 MG TAB PO SCH (06:07)
--- NOTE | 2020-03-09 07:49 | Progress Note ---
Assessment and Plan A: PPD3 s/p , pree s/p MGSO4 Vital signs stable Acute on chronic anemia due to and blood loss P: Continue current care Fe supplementation Discharge to home today Subjective - Subjective Date of service: 03/09/20 Principal diagnosis: s/p and MGSO4 Interval history: PPD3 s/p , pree s/p MgSO4 Patient reports: appetite normal, voiding normally, pain well controlled, ambulating normally : doing well, nursing well Objective - Vital Signs Latest vital signs: Vital Signs Temp Pulse Resp BP Pulse Ox 03/08/20 23:30 98.4 F 111 H 20 117/71 99 03/08/20 16:00 99.0 F 94 H 18 114/73 100 03/08/20 08:16 98.5 F 89 18 124/71 100 Intake and Output 03/08/20 03/08/20 03/09/20 15:59 23:59 07:59 Intake Total 720 840 Balance 720 840 Intake: Oral 360 480 Intake, Free Water 360 360 Other: Total, Intake Amount 120 120 # Voids Void 1 1 1 - Exam Breasts: Present: , other (right nipple cracked) Lungs: Present: Normal air movement Abdomen: Present: soft. Absent: distention Uterus: Present: firm, fundal height below umbilicus
--- NOTE | 2020-03-09 07:53 | Discharge Summary ---
Providers - Providers Date of Admission: 03/05/20 21:44 Date of discharge: 03/09/20 Attending physician: CHON MENDOZA Primary care physician: CHON MENDOZA Hospitalization Reason for admission: induction of labor (for IUGR), IUP at term Delivery: Episiotomy: none Laceration: vaginal side wall complications: uterine atony, other (preeclampsia) Discharge diagnosis: IUP at term delivered Hospital course: Pt arrived for IOL secondary to IUGR. She had a . She was noted to have preeclampsia with severe features and received MgSO4 infusion x24 hours. Condition at discharge: Good Disposition: DC-01 TO HOME OR SELFCARE Plan - Discharge Medications Prescriptions: Docusate Sodium [Colace] 100 mg PO BID PRN #60 capsule PRN Reason: Constipation Ferrous Sulfate [Feosol 325 MG tab] 325 mg PO BID #60 tablet Ibuprofen [Motrin] 600 mg PO Q6H PRN #30 tablet PRN Reason: Pain HYDROcodone/APAP 5-325 [Edroy 5/325] 1 each PO Q6HR PRN #20 tablet PRN Reason: Pain - Provider Discharge Summary Activity: routine, no sex for 6 weeks, no heavy lifting 4 weeks, no strenuous exercise Diet: routine Instructions: routine Additional instructions: [] Smoking cessation referral if applicable(refer to patient education folder for contact #) [] Refer to [facility] Booklet Call your doctor immediately for: * Fever > 100.5 * Heavy vaginal bleeding ( >1 pad per hour) * Severe persistent headache * Shortness of breath * Reddened, hot, painful area to leg or breast * Drainage or odor from incision. * Keep incision clean and dry at all times and follow doctor's instructions regarding bathing/showering - Follow up plan Follow up: BLOSSOM VARELA CNM [Advanced Practice Nurse] - 7 Days (Please call office to schedule appointment.)
[2020-03-09] MEDS: FERROUS SULFATE 325 MG TAB PO SCH (11:40)
[2020-03-09] MEDS: levETIRAcetam 500 MG TAB PO SCH (11:40)
[2020-03-09] MEDS: PRENATAL VIT27-FE FUMARATE-FOLIC ACID VIT TAB PO SCH (11:41)
[2020-03-09 13:32] VITALS: BP 126/81
== END 2020-03-09 14:00 | disposition home or self-care (01) | DRG 806 ==
LOC: EDBD 20:29 → TRG 20:29 → LD 21:44 → OB 03-07 23:23
PROVIDERS: ADMIT Obstetrics & Gynecology; ATTEND Obstetrics & Gynecology
PROC: 10E0XZZ Delivery of Products of Conception, External Approach (ICD-10-PCS; principal; 2020-03-06)
PROC: 0KQM0ZZ Repair Perineum Muscle, Open Approach (ICD-10-PCS; 2020-03-06)
PROC: 3E0R3BZ Introduction of Anesthetic Agent into Spinal Canal, Percutaneous Approach (ICD-10-PCS; 2020-03-06)
PROC: 00HU33Z Insertion of Infusion Device into Spinal Canal, Percutaneous Approach (ICD-10-PCS; 2020-03-06)
PROC: 10H07YZ Insertion of Other Device into Products of Conception, Via Natural or Artificial Opening (ICD-10-PCS; 2020-03-06)
PROC: 3E0234Z Introduction of Serum, Toxoid and Vaccine into Muscle, Percutaneous Approach (ICD-10-PCS; 2020-03-07)
PROC: 3E0134Z Introduction of Serum, Toxoid and Vaccine into Subcutaneous Tissue, Percutaneous Approach (ICD-10-PCS; 2020-03-07)
DX: O36.5930 Maternal care for other known or suspected poor fetal growth, third trimester, not applicable or unspecified (principal); D62 Acute posthemorrhagic anemia; Z37.0 Single live birth; O99.354 Diseases of the nervous system complicating childbirth; O42.02 Full-term premature rupture of membranes, onset of labor within 24 hours of rupture; O76 Abnormality in fetal heart rate and rhythm complicating labor and delivery; O62.2 Other uterine inertia; O69.81X0 Labor and delivery complicated by cord around neck, without compression, not applicable or unspecified; G40.909 Epilepsy, unspecified, not intractable, without status epilepticus; O14.14 Severe pre-eclampsia complicating childbirth; O90.81 Anemia of the puerperium; O70.1 Second degree perineal laceration during delivery; Z3A.39 39 weeks gestation of pregnancy; Z23 Encounter for immunization; Z82.49 Family history of ischemic heart disease and other diseases of the circulatory system
CPT/HCPCS: 36415; 81001; 82565; 83615; 83735; 84450; 84460; 84550; 85014; 85018; 85025; 85027; 86592; 86850; 86900; 86901; 87086; 88307; 90707; 90715; G0378; J0595; J2405; J2590; J3475; J3490; J7030; J7120